=== PATIENT | female | born 1995 | race African-American/Black ===

== ENCOUNTER 2020-11-18 11:25 | Observation (INO) | payer MEDICAID ==
[~2020-11-18] VITALS: Ht 167.6 cm; Wt 69.4 kg
[2020-11-18] MEDS ORDERED: ACETAMINOPHEN 500MG TABLET PO SCH (12:30)
[2020-11-18 12:40] LABS: CLARITY URINE CLOUDY (CLEAR); COLOR URINE YELLOW (YELLOW); KETONES URINE NEGATIVE (NEGATIVE); LEUKOCYTE ESTERASE URINE 1+ (NEGATIVE); NITRITE URINE NEGATIVE (NEGATIVE); OCCULT BLOOD URINE NEGATIVE (NEGATIVE); PH URINE 6.5 (4.5-8.0); PROTEIN URINE NEGATIVE (NEGATIVE); UROBILINOGEN URINE 0.2 E.U./dL (0.2-1.0)
[2020-11-18] MEDS: LACTATED RINGERS 1,000 ML IV SCH ×2 (12:47→18:23)
[2020-11-18] MEDS: TERBUTALINE SULFATE 1MG/ML VIAL SUBCUT PRN (13:42)
[2020-11-18] MEDS: BETAMETHASONE ACET/BETAMET 30 MG/5 ML VIAL IM SCH (16:22)
[2020-11-19] MEDS ORDERED: ACETAMINOPHEN 500MG TABLET PO SCH (01:15)
[2020-11-19] MEDS: TERBUTALINE SULFATE 1MG/ML VIAL SUBCUT PRN ×2 (01:22→02:55)
[2020-11-19] MEDS ORDERED: CEFAZOLIN 2,000 MG in DEXT 5% WATER 100 ML IV SCH (02:00)
[2020-11-19] MEDS: LACTATED RINGERS 1,000 ML IV SCH (04:07)
[2020-11-19] MEDS: BETAMETHASONE ACET/BETAMET 30 MG/5 ML VIAL IM SCH (12:31)
[2020-11-19] MEDS ORDERED: FERR325T6 PO (22:02)
[2020-11-19] MEDS ORDERED: PREN1TAB78 PO (22:02)
== END 2020-11-19 12:45 | disposition home or self-care (01) ==
LOC: 8 EST LDRP 11:25
PROVIDERS: ADMIT Obstetrics & Gynecology; ATTEND Obstetrics & Gynecology
DX: O99.891 Other specified diseases and conditions complicating pregnancy (principal); M54.5 Low back pain; Z3A.29 29 weeks gestation of pregnancy
CPT/HCPCS: 76805; 76818; 81003; 96361; 96365; 96372; G0378; J0690; J0702; J3105; J7060; J7120; 96360; 99281

== ENCOUNTER 2020-11-19 21:24 | Observation (INO) | payer MEDICAID ==
[~2020-11-19] VITALS: Ht 167.6 cm; Wt 69.4 kg
[2020-11-19] MEDS ORDERED: FERR325T6 PO (22:02)
[2020-11-19] MEDS ORDERED: PREN1TAB78 PO (22:02)
[2020-11-19] MEDS ORDERED: LACTATED RINGERS 1,000 ML IV SCH (22:30)
[2020-11-20 00:30] LABS: HEMATOCRIT. 29.6 % (36.0-48.0); HEMOGLOBIN. 9.8 g/dL (12.0-16.0); LYMPHOCYTES % 9.2 % (20.0-50.0); MEAN CORPUSCULAR HEMOGLOBIN 29.7 pg (28.0-32.0); MEAN CORPUSCULAR VOLUME 90.1 fL (81.0-99.0); MEAN PLATELET VOLUME 7.9 fl (7.4-10.4); MONOCYTES % 3.2 % (2.0-8.0); NEUTROPHILS % 87.6 % (40.0-76.0); PLATELET 260 x1000/uL (130-400); RED BLOOD CELL COUNT 3.29 mill/uL (4.2-5.4); RED CELL DISTRIBUTION WIDTH 14.2 % (11.6-14.6)
[2020-11-20 00:42] LABS: CHLORIDE 110 mEq/L (98-107)
[2020-11-20 00:44] LABS: CLARITY URINE CLEAR (CLEAR); COLOR URINE YELLOW (YELLOW); KETONES URINE NEGATIVE (NEGATIVE); LEUKOCYTE ESTERASE URINE NEGATIVE (NEGATIVE); NITRITE URINE NEGATIVE (NEGATIVE); OCCULT BLOOD URINE NEGATIVE (NEGATIVE); PROTEIN URINE NEGATIVE (NEGATIVE); SPECIFIC GRAVITY URINE 1.018 (1.005-1.030); UROBILINOGEN URINE 0.2 E.U./dL (0.2-1.0)
[2020-11-20 00:51] LABS: PARTIAL THROMBOPLASTIN TIME 26.8 sec (23.4-31.0); PROTHROMBIN TIME 10.8 sec (9.6-11.0)
[2020-11-20 00:55] LABS: *AMPHETAMINES SCREEN URINE NEGATIVE (NEGATIVE); *BARBITURATES SCREEN URINE NEGATIVE (NEGATIVE); *BENZODIAZEPINES SCREEN URINE NEGATIVE (NEGATIVE); *COCAINE SCREEN URINE NEGATIVE (NEGATIVE); METHADONE URINE SCREEN NEGATIVE (NEGATIVE); OPIATES URINE SCREEN NEGATIVE (NEGATIVE); PHENCYCLIDINE URINE SCREEN NEGATIVE (NEGATIVE)
[2020-11-20 00:57] LABS: CANNABINOID URINE SCREEN NEGATIVE (NEGATIVE)
[2020-11-20 01:08] LABS: HEPATITIS B SURFACE ANTIGEN NEGATIVE
== END 2020-11-20 02:18 | disposition home or self-care (01) ==
LOC: 8 EST LDRP 21:24
PROVIDERS: ADMIT Obstetrics & Gynecology; ATTEND Obstetrics & Gynecology
DX: O26.893 Other specified pregnancy related conditions, third trimester (principal); R10.9 Unspecified abdominal pain; O62.9 Abnormality of forces of labor, unspecified; O99.891 Other specified diseases and conditions complicating pregnancy; M54.5 Low back pain; Z3A.28 28 weeks gestation of pregnancy
CPT/HCPCS: 36415; 59025; 80053; 80305; 81003; 84550; 85025; 85384; 85610; 85730; 86592; 86703; 86762; 86850; 86900; 86901; 87340; 96360; 96361; G0378; 99281

== ENCOUNTER 2020-11-23 22:32 | Observation (INO) | payer MEDICAID ==
[~2020-11-23] VITALS: Ht 167.6 cm; Wt 67.1 kg
[~2020-11-23 22:32] MED LIST: FERR325T6 PO; PREN1TAB78 PO
[2020-11-23] MEDS ORDERED: ACET-2708 PO (23:32)
[2020-11-23] MEDS ORDERED: PREN-182 PO (23:32)
[2020-11-24] MEDS ORDERED: SODIUM CHLORIDE 0.9% 100 ML IV NR (00:30)
[2020-11-24] MEDS: HYDROCODONE/ACETAMINOPHEN 5/325MG TABLET PO PRN ×2 (00:40→01:37)
[2020-11-24 01:37] VITALS: BP 96/52
[2020-11-24 01:39] LABS: CLARITY URINE CLEAR (CLEAR); COLOR URINE YELLOW (YELLOW); KETONES URINE NEGATIVE (NEGATIVE); LEUKOCYTE ESTERASE URINE NEGATIVE (NEGATIVE); NITRITE URINE NEGATIVE (NEGATIVE); OCCULT BLOOD URINE NEGATIVE (NEGATIVE); PH URINE 6.5 (4.5-8.0); PROTEIN URINE NEGATIVE (NEGATIVE); SPECIFIC GRAVITY URINE 1.015 (1.005-1.030); UROBILINOGEN URINE 0.2 E.U./dL (0.2-1.0)
== END 2020-11-24 03:50 | disposition home or self-care (01) ==
LOC: 8 EST LDRP 22:32
PROVIDERS: ADMIT Obstetrics & Gynecology; ATTEND Obstetrics & Gynecology
DX: O99.891 Other specified diseases and conditions complicating pregnancy (principal); M54.5 Low back pain; Z3A.29 29 weeks gestation of pregnancy
CPT/HCPCS: 59025; 81003; 96360; 96361; G0378; 99281

== ENCOUNTER 2020-12-25 17:59 | Observation (INO) | payer MEDICAID ==
[~2020-12-25] VITALS: Ht 198.1 cm; Wt 66.2 kg
[~2020-12-25 17:59] MED LIST changes: +ACET-2708 PO; +PREN-182 PO
== END 2020-12-25 20:26 | disposition home or self-care (01) ==
LOC: 8 EST LDRP 17:59
PROVIDERS: ADMIT Obstetrics & Gynecology; ATTEND Obstetrics & Gynecology
DX: O62.9 Abnormality of forces of labor, unspecified (principal); Z3A.34 34 weeks gestation of pregnancy
CPT/HCPCS: G0378 ×2; 99281

== ENCOUNTER 2021-01-06 13:54 | Observation (INO) | payer MEDICAID ==
[~2021-01-06] VITALS: Ht 167.6 cm; Wt 67.1 kg
[2021-01-06] MEDS ORDERED: PREN1TAB22 PO (13:59)
[2021-01-06] MEDS ORDERED: ACETAMINOPHEN 500MG TABLET PO SCH (15:00)
[2021-01-06] MEDS: LACTATED RINGERS 1,000 ML IV SCH ×2 (15:02→16:26)
[2021-01-06 15:50] LABS: CLARITY URINE CLEAR (CLEAR); COLOR URINE YELLOW (YELLOW); KETONES URINE 2+ (NEGATIVE); LEUKOCYTE ESTERASE URINE NEGATIVE (NEGATIVE); NITRITE URINE NEGATIVE (NEGATIVE); OCCULT BLOOD URINE NEGATIVE (NEGATIVE); PH URINE 7.5 (4.5-8.0); PROTEIN URINE NEGATIVE (NEGATIVE); SPECIFIC GRAVITY URINE 1.015 (1.005-1.030)
[2021-01-06] MEDS ORDERED: TERBUTALINE SULFATE 1MG/ML VIAL SUBCUT NR (16:30)
== END 2021-01-06 17:40 | disposition home or self-care (01) ==
LOC: 8 EST LDRP 13:54
PROVIDERS: ADMIT Obstetrics & Gynecology; ATTEND Obstetrics & Gynecology
DX: O62.9 Abnormality of forces of labor, unspecified (principal); Z3A.35 35 weeks gestation of pregnancy
CPT/HCPCS: 81003; 96372; G0378; J3105; 96360; 96361; 99281